=== PATIENT | female | born 1995 | race Caucasian/White ===

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

== ENCOUNTER 2018-06-05 17:13 | Emergency (ER) | payer OTHER ==
[2018-06-05] MEDS ORDERED: Ondansetron ODT TAB* 4 MG SL ONE (17:19)
--- NOTE | 2018-06-05 17:27 | UC ---
Respiratory Complaint HPI - HPI Summary HPI Summary: 22 yo female presents with cough. She tells me that for the last week she has had sinus pain/pressure/congestion that has improved, but yesterday developed a cough that is productive today. Also today she notes a decreased appetite and some nausea. Has not been taking anything OTC for her symptoms. Denies fever, chills, sore throat, SOB, abdominal pain, vomiting, diarrhea, dysuria. - History of Current Complaint Stated Complaint: HEADACHE Time Seen by Provider: 06/05/18 17:22 Hx Obtained From: Patient Hx Last Menstrual Period: 10/18/16 Onset/Duration: Gradual Onset Timing: Constant Severity Initially: Mild Severity Currently: Mild Pain Intensity: 3 Pain Scale Used: 0-10 Numeric - Allergies/Home Medications Allergies/Adverse Reactions: Allergies Allergy/AdvReac Type Severity Reaction Status Date / Time Penicillins Allergy Unknown Verified 06/05/18 17:29 Reaction Details PMH/Surg Hx/FS Hx/Imm Hx Psychological History: Anxiety, Depression - Surgical History Surgical History: None - Family History Known Family History: Positive: Unknown - Social History Lives: With Family Alcohol Use: None Substance Use Type: Marijuana Smoking Status (MU): Never Smoked Tobacco Have You Smoked in the Last Year: No - Immunization History Most Recent Influenza Vaccination: Past Season Most Recent Pneumonia Vaccination: Never Review of Systems All Other Systems Reviewed And Are Negative: Yes Constitutional: Positive: Negative Skin: Positive: Negative Eyes: Positive: Negative ENT: Positive: Nasal Discharge, Sinus Congestion, Sinus Pain/Tenderness Respiratory: Positive: Cough Cardiovascular: Positive: Negative Gastrointestinal: Positive: Nausea Neurovascular: Positive: Negative Neurological: Positive: Negative Psychological: Positive: Negative Physical Exam - Summary Physical Exam Summary: GENERAL: NAD. WDWN. No pain distress. SKIN: No rashes, sores, lesions, or open wounds. HEENT: Head: AT/NC Eyes: EOM intact. Conjunctiva clear without inflammation or discharge. Ears: Hearing grossly normal. TMs intact, no bulging, erythema, or edema. Nose: Nasal mucosa pink and moist. NTTP maxillary and frontal sinus. Throat: Posterior oropharynx without exudates, erythema, or tonsillar enlargement. Uvula midline. NECK: Supple. Nontender. No lymphadenopathy. CHEST: CTAB. No r/r/w. No accessory muscle use. Breathing comfortably and in no distress. CV: RRR. Without m/r/g. Pulses intact. Cap refill <2seconds NEURO: Alert. PSYCH: Age appropriate behavior. Triage Information Reviewed: Yes Vital Signs: Vital Signs: Temp Pulse Resp BP Pulse Ox 99 F 115 16 114/77 97 06/05/18 17:21 06/05/18 17:21 06/05/18 17:21 06/05/18 17:21 06/05/18 17:21 Vital Signs Reviewed: Yes Respiratory Course/Dx - Course Course Of Treatment: CXR: IMPRESSION: NO EVIDENCE FOR ACTIVE CARDIOPULMONARY DISEASE. Pt was given zofran in the clinic, which resolved her nausea and she reports feeling much better. Her exam was unremarkable, she is afebrile, and well appearing - therefore I suspect her symptoms are likely viral. Will treat her cough and advise to try mucinex and tylenol/ibuprofen for her discomfort and f/u if symptoms do not improve. - Differential Dx/Diagnosis Provider Diagnosis: URI (upper respiratory infection) Discharge - Sign-Out/Discharge Documenting (check all that apply): Patient Departure All imaging exams completed and their final reports reviewed: Yes - Discharge Plan Condition: Stable Disposition: HOME Prescriptions: Albuterol HFA INHALER* [Ventolin HFA Inhaler*] 1 - 2 puff INH Q6H PRN #1 mdi PRN Reason: Sob/Wheezing Benzonatate CAP* [Tessalon 100 MG CAP*] 100 mg PO TID PRN #21 cap PRN Reason: Cough Patient Education Materials: Upper Respiratory Infection (DC) Forms: *Work Release Referrals: Tom Swan, [facility] [Primary Care Provider] - Additional Instructions: If you develop a fever, shortness of breath, chest pain, new or worsening symptoms - please call your PCP or go to the ED. - Billing Disposition and Condition Condition: STABLE Disposition: Home
[2018-06-05 17:29] VITALS: BP 114/77
== END 2018-06-05 18:00 | disposition home or self-care (01) ==
LOC: UCEAST 17:13
DX: J06.9 Acute upper respiratory infection, unspecified (principal); R11.0 Nausea; Z88.0 Allergy status to penicillin
CPT/HCPCS: 71046; 99212; A9270-GY; G0463

== ENCOUNTER 2018-07-01 11:32 | Emergency (ER) | payer OTHER ==
[2018-07-01 12:08] VITALS: BP 130/76
--- NOTE | 2018-07-01 13:03 | UC ---
Abdominal Pain Female HPI - HPI Summary HPI Summary: 22-year-old female presents with onset of nausea and vomiting last evening. States started around 5:30 in the afternoon after eating some tofu and rice. States she's been unable to keep fluids or solids down since the onset. Denies fever, chills, dizziness, lightheadedness, abdominal pain, diarrhea, hematemesis , dysuria, frequency, or urgency. Last menstrual period 6 weeks ago. Sexually active with a single male partner. States uses condoms consistently. Reports did a home test that was negative. - History of Current Complaint Chief Complaint: UCAbdominalPain Stated Complaint: VOMITING ABD PAIN Time Seen by Provider: 07/01/18 12:39 Hx Obtained From: Patient Hx Last Menstrual Period: 05/18/18 Pain Intensity: 6 Allergies/Adverse Reactions: Allergies Allergy/AdvReac Type Severity Reaction Status Date / Time Penicillins Allergy Unknown Verified 07/01/18 12:09 Reaction Details PMH/Surg Hx/FS Hx/Imm Hx Previously Healthy: Yes Psychological History: Depression - Surgical History Surgical History: None - Family History Known Family History: Positive: Unknown - Social History Occupation: Employed Full-time Lives: Alone Alcohol Use: None Substance Use Type: Marijuana Substance Use Comment - Amount & Last Used: daily Smoking Status (MU): Never Smoked Tobacco Have You Smoked in the Last Year: No - Immunization History Most Recent Influenza Vaccination: Past Season Most Recent Pneumonia Vaccination: Never Review of Systems All Other Systems Reviewed And Are Negative: Yes Constitutional: Negative: Fever, Chills ENT: Negative: Sore Throat, Ear Ache, Nasal Discharge, Sinus Congestion, Sinus Pain/Tenderness Respiratory: Negative: Shortness Of Breath, Cough Cardiovascular: Negative: Palpitations, Chest Pain Gastrointestinal: Positive: Vomiting, Nausea. Negative: Abdominal Pain, Diarrhea Genitourinary: Negative: Dysuria, Hematuria, Frequency, Urgency, Vaginal/Penile Discharge, Abnormal Bleeding Musculoskeletal: Positive: Negative Neurological: Positive: Negative Is Patient Immunocompromised?: No Physical Exam - Summary Physical Exam Summary: GENERAL APPEARANCE: Well developed, well nourished, alert and cooperative, and appears to be in no acute distress. EYES: Conjunctiva clear. No drainage. Vision is grossly intact. EARS: External auditory canals and tympanic membranes clear, hearing grossly intact. NOSE: No nasal discharge. THROAT: Pharynx normal. No tonsilar inflammation, swelling, exudate, or lesions. Uvula midline. Oral cavity normal. Teeth and gingiva in good general condition. NECK: Neck supple, non-tender without lymphadenopathy. CARDIAC: Normal S1 and S2. No S3, S4 or murmurs. Rhythm is regular. There is no peripheral edema, cyanosis or pallor. Extremities are warm and well perfused. Capillary refill is less than 2 seconds. Peripheral pulses intact. LUNGS: Clear to auscultation without rales, rhonchi, wheezing or diminished breath sounds. ABDOMEN: Positive bowel sounds. Soft, nondistended, nontender. No guarding or rebound. No masses or hepatosplenomegally. No CVA tenderness. MUSKULOSKELETAL: ROM intact to all extremities. No joint erythema or tenderness. Normal muscular development. Normal gait. SKIN: Skin normal color, texture and turgor with no lesions or eruptions. Triage Information Reviewed: Yes Vital Signs: Initial Vital Signs Temp 98 F 07/01/18 12:06 Pulse 89 07/01/18 12:06 Resp 18 07/01/18 12:06 BP 130/76 07/01/18 12:06 Pulse Ox 100 07/01/18 12:06 Vital Signs Reviewed: Yes Re-Evaluation - Re-Evaluation First Eval Re-Evaluation Time: 13:55 Change: Improved Comment: Patient reports nausea subsided after receiving ondansetron. Taking PO fluids without any further episodes of vomiting. Will d/c to home to continue oral rehydration. Abd Pain Female Course/Dx - Course Course Of Treatment: 22-year-old female presents with onset of nausea and vomiting last evening. States started around 5:30 in the afternoon after eating some tofu and rice. States she's been unable to keep fluids or solids down since the onset. Denies fever, chills, dizziness, lightheadedness, abdominal pain, diarrhea, hematemesis , dysuria, frequency, or urgency. Last menstrual period 6 weeks ago. Sexually active with a single male partner. States uses condoms consistently. Reports did a home test that was negative. Afebrile. Vital signs stable. Exam was overall unremarkable. [id number] urinalysis showed 1+ protein, 3+ ketones, 1+ bilirubin. [id number] urine negative. Patient was given ondansetron 8 mg PO with resolution of her nausea. She was able to tolerate PO fluids in the clinic with no further episodes of vomiting. Will discharge to home with a prescription for ondansetron 4 mg 1 tablet every 8 hours as needed for nausea or vomiting and have the patient continue to orally rehydrate at home. She is to return here or follow-up with her primary care provider in 3-5 days if symptoms do not improve. Anticipatory guidance and warning symptoms requiring evaluation in the emergency room were reviewed with the patient. Verbalizes understanding and agrees with plan of care. - Differential Dx/Diagnosis Differential Diagnosis: , Urinary Tract Infection, Other - viral gastroenteritits, bacterial gastroenteritits, gastritis Provider Diagnosis: Nausea & vomiting Discharge - Sign-Out/Discharge Documenting (check all that apply): Patient Departure All imaging exams completed and their final reports reviewed: No Studies - Discharge Plan Condition: Stable Disposition: HOME Prescriptions: Ondansetron ODT TAB* [Zofran 4 MG Odt TAB*] 4 mg PO Q8H PRN #6 tab.odt PRN Reason: Nausea/Vomiting Patient Education Materials: Acute Nausea and Vomiting (ED) Referrals: No Primary Care Phys,NOPCP [Primary Care Provider] - Additional Instructions: Take ondansetron (Zofran) 1 tablet every 8 hours as needed for nausea or vomiting. You were given a dose in the clinic today around 1:20 pm. Drink plenty of fluids. Try to drink small amounts frequently to avoid filling your stomach to full which can cause vomiting. If you are still having vomiting, start with a clear liquid diet including soup broths, Jello, popsicles, and nikki-chelsey with carbonation stirred out of it. You may then advance to a bland diet including saltine crackers, toast, bananas , rice, and applesauce. Then return to a normal diet as tolerated. Follow up here or with your primary care provider in 3-5 days if symptoms persist. Seek immediate medical attention in the emergency room if you develop fever greater than 100.5 F, have severe abdominal pain, persistent vomiting, blood in your vomit or stool, or any worsening of symptoms. - Billing Disposition and Condition Condition: STABLE Disposition: Home
[2018-07-01] MEDS ORDERED: Ondansetron ODT TAB* 4 MG PO ONE (13:09)
== END 2018-07-01 14:15 | disposition home or self-care (01) ==
LOC: UCEAST 11:32
DX: R11.2 Nausea with vomiting, unspecified (principal); Z88.0 Allergy status to penicillin
CPT/HCPCS: 81003; 84702; 99212; A9270-GY; G0463